=== PATIENT | female | born 1940 | race African-American/Black ===

== ENCOUNTER 2024-06-08 10:35 | Outpatient (CLI) | payer MEDICARE, BC | END 2024-06-08 23:59 | disposition home or self-care (01) | LOC: WOU 10:35 | PROVIDERS: ATTEND Podiatrist Foot & Ankle Surgery | DX: Z09 Encounter for follow-up examination after completed treatment for conditions other than malignant neoplasm (principal); I87.2 Venous insufficiency (chronic) (peripheral); I10 Essential (primary) hypertension; Z87.2 Personal history of diseases of the skin and subcutaneous tissue ==